=== PATIENT | female | born 1975 | race Caucasian/White ===

== ENCOUNTER 2019-11-26 17:48 | Emergency (ER) | payer SELFPAY ==
[~2019-11-26] VITALS: Ht 162.6 cm; Wt 86.0 kg
[~2019-11-26 17:48] MED LIST: AMOXIL500 MG OR; LORTAB 5 OR; MEDDOSEPAK OR; PANCOF EXP OR; TYLENOL500 MG OR
[2019-11-26] MEDS ORDERED: GENTAK0.32 OU (18:35)
[2019-11-26 18:50] VITALS: BP 111/73
== END 2019-11-26 18:50 | disposition home or self-care (01) | DRG 125 ==
LOC: ED 17:48
DX: H10.13 Acute atopic conjunctivitis, bilateral (principal)